=== PATIENT | male | born 1980 | race Hispanic/Latino ===

== ENCOUNTER 2020-07-11 14:29 | Emergency (ER) | payer OTHER, MEDICAID ==
[~2020-07-11] VITALS: Ht 182.9 cm; Wt 81.6 kg
[2020-07-11] MEDS ORDERED: ANASTROZOLE1 MG PO (14:40)
[2020-07-11] MEDS ORDERED: CABERGOLINE0.5 MG PO (14:40)
[2020-07-11] MEDS ORDERED: NORCO 7.5-3251 EACH PO (15:14)
== END 2020-07-11 16:23 | disposition home or self-care (01) ==
LOC: ED 14:29
DX: M24.411 Recurrent dislocation, right shoulder (principal); W14.XXXA Fall from tree, initial encounter; F17.200 Nicotine dependence, unspecified, uncomplicated; Z79.899 Other long term (current) drug therapy
CPT/HCPCS: 23650; 73020; 73030; 94150; 94640; 99152; 99153; 99283-25; A9270; J1170; J1885; J2704; J7030

== ENCOUNTER 2021-02-26 22:17 | Emergency (ER) | payer MEDICAID ==
[~2021-02-26] VITALS: Ht 167.6 cm; Wt 81.7 kg
[~2021-02-26 22:17] MED LIST: ANASTROZOLE1 MG PO; CABERGOLINE0.5 MG PO; NORCO 7.5-3251 EACH PO
== END 2021-02-26 23:20 | disposition home or self-care (01) ==
LOC: ED 22:17
DX: M24.411 Recurrent dislocation, right shoulder (principal); F17.200 Nicotine dependence, unspecified, uncomplicated; Z79.899 Other long term (current) drug therapy
CPT/HCPCS: 23650; 73030; 99283-25; J2250; J3010

== ENCOUNTER 2021-04-10 18:54 | Emergency (ER) | payer MEDICAID ==
[~2021-04-10] VITALS: Ht 167.6 cm; Wt 81.7 kg
[2021-04-10] MEDS ORDERED: EMTRICITABINE-1 EACH PO (19:24)
== END 2021-04-10 20:25 | disposition home or self-care (01) ==
LOC: ED 18:54
DX: M24.411 Recurrent dislocation, right shoulder (principal); F17.200 Nicotine dependence, unspecified, uncomplicated; Z79.899 Other long term (current) drug therapy
CPT/HCPCS: 23650; 73030; 99283-25